=== PATIENT | female | born 1990 | race Caucasian/White ===

== ENCOUNTER 2019-03-03 18:44 | Emergency (ER) | payer BC ==
[~2019-03-03] VITALS: Ht 167.6 cm; Wt 71.0 kg
[2019-03-03 18:59] VITALS: Ht 167.6 cm; Wt 71.0 kg
[2019-03-03 22:16] VITALS: BP 118/77; PULSE 79; RESP 16
== END 2019-03-03 22:16 | disposition home or self-care (01) ==
LOC: FTE 18:44
DX: S05.92XA Unspecified injury of left eye and orbit, initial encounter (principal); W50.1XXA Accidental kick by another person, initial encounter; Y92.9 Unspecified place or not applicable
CPT/HCPCS: 76536